=== PATIENT | female | born 1945 | race Caucasian/White ===

== ENCOUNTER → 2017-09-30 | Outpatient (CLI) | payer MEDICARE, OTHER ==
--- NOTE | 2017-09-30 15:04 | US ---
EXAMINATION TYPE: US thyroid st tissue head/neck DATE OF EXAM: 09/30/2017 COMPARISON: NONE CLINICAL HISTORY: 72-year-old female R22.1 Localized swelling, mass and lump, neck. TECHNIQUE: Multiple sonographic images of the left paramedian posterior neck at the level of C7 at th e patient's palpable site. FINDINGS: There is an ovoid, circumscribed, isoechoic mass situated within the deep subcutaneous fat layer orie nted horizontally and obliquely extending from the C7 spinous process midline extending out laterally . There is a mass effect onto the underlying muscular fascia. No associated vascularity. It measures 7.2 x 3.8 x 1.5cm. Additional views Mary Pulido. IMPRESSION: Well-defined, ovoid, isoechoic mass measuring 7.2 x 3.8 x 1.5 cm in the right paramedian posterior mi dline at the C7 level. This is located in the deep subcutaneous adipose layer contacting the underlyi ng superficial fascia and most likely represents a lipoma. Consider surgical excision especially if s ymptomatic or if there is growth.
== END | disposition home or self-care (01) ==
LOC: RADUSWWP 10:50
PROVIDERS: ATTEND Surgery Plastic and Reconstructive Surgery
DX: R22.1 Localized swelling, mass and lump, neck (principal); Z88.5 Allergy status to narcotic agent
CPT/HCPCS: 76536

== ENCOUNTER → 2017-10-15 | Outpatient (CLI) | payer MEDICARE, OTHER ==
--- NOTE | 2017-10-15 13:51 | CT ---
EXAMINATION TYPE: CT soft tissue neck wo/w con DATE OF EXAM: 10/15/2017 COMPARISON: Correlation thyroid ultrasound 09/30/2017 HISTORY: 72-year-old female Left sided posterior neck swelling and tenderness, cervical cyst, spine m ass. TECHNIQUE: Contiguous axial scanning of the soft tissues of the neck performed without and with IV Co ntrast, patient injected with 100 mL of Isovue 300. Coronal/sagittal reconstructions performed. CT DLP: 893.6 mGycm Automated exposure control for dose reduction was used. 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 Visualized intracranial structures, orbits and globes, paranasal sinuses, and mastoid air cells appea r clear. Nasopharynx is clear. Some calcifications in the left palatine tonsil suggests sequela of prior infection. Otherwise, oroph arynx appears clear. Epiglottis and prevertebral soft tissues appear within normal limits. Glottic and subglottic structures show no obvious mass. The tracheal column and visualized upper lung s are clear.. The thyroid gland, submandibular glands, and parotid glands are satisfactory. No cervical lymphadenopathy identified. Small 4 mm left occipital lymph node, axial image 75. There is fatty proliferation along the left paramedian posterior base of the neck measuring up to 5.2 cm craniocaudal by 2.8 cm AP by 6.0 cm wide. This shows some internal strandy densities but no abnor mal soft tissue nodularity. Bones: No osseous destructive process. IMPRESSION: 1. FATTY MASS LEFT PARAMEDIAN POSTERIOR BASE OF THE NECK MEASURES 6.0 X 5.2 X 2.8 CM. IT IS LOCATED I N THE SUBCUTANEOUS ADIPOSE LAYER ABUTTING THE UNDERLYING FASCIA. 2. 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 GIVEN SOME INTERNAL STRANDY DENSITIES, ATYPICAL LIPOMATOUS T UMOR AND LOW-GRADE LIPOSARCOMA ARE NOT ENTIRELY EXCLUDED FROM THE DIFFERENTIAL. CORRELATE FOR ANY SYM PTOMS OR RECENT GROWTH. 3. 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
== END | disposition home or self-care (01) ==
LOC: RADCTMAIN 12:20
PROVIDERS: ATTEND Surgery Plastic and Reconstructive Surgery
DX: Q27.8 Other specified congenital malformations of peripheral vascular system (principal); R22.1 Localized swelling, mass and lump, neck; Z88.5 Allergy status to narcotic agent
CPT/HCPCS: 82565; 84520; 70492; 36415; Q9967

== ENCOUNTER → 2018-08-08 | Outpatient (CLI) | payer MEDICARE, OTHER ==
--- NOTE | 2018-08-12 09:44 | MM ---
Reason for exam: screening (asymptomatic). Last mammogram was performed 1 year and 7 months ago. History: Patient is postmenopausal. Family history of breast cancer in mother at age 70. Physical Findings: A clinical breast exam by your physician is recommended on an annual basis and results should be correlated with mammographic findings. MG 3D Screening Mammo W/Cad Bilateral CC and MLO view(s) were taken. Prior study comparison: January 04, 2017, bilateral MG 3d screening mammo w/cad. March 02, 2015, bilateral MG screening mammo w CAD. There are scattered fibroglandular densities. No significant changes when compared with prior studies. ASSESSMENT: Benign, BI-RAD 2 RECOMMENDATION: Routine screening mammogram of both breasts in 1 year.
== END | disposition home or self-care (01) ==
LOC: RADMAMWWP 07:16
PROVIDERS: ATTEND Family Medicine
DX: Z12.31 Encounter for screening mammogram for malignant neoplasm of breast (principal)
CPT/HCPCS: 77063; 77067

== ENCOUNTER → 2018-11-14 | Outpatient (CLI) | payer MEDICARE, OTHER ==
--- NOTE | 2018-11-14 11:09 | US ---
EXAMINATION TYPE: US kidneys/renal and bladder DATE OF EXAM: 11/14/2018 COMPARISON: NONE CLINICAL HISTORY: R94.4 Decreased renal functions. Abnormal renal function test. EXAM MEASUREMENTS: Right Kidney: 9.6 x 4.4 x 3.8 cm Left Kidney: 10.8 x 5.6 x 4.9 cm Right Kidney: wnl Left Kidney: wnl Bladder: Anechoic not fully distended. Bilateral Jets seen: No There is no evidence for hydronephrosis at this point in time. No cortical renal thinning. Cortical m edullary differentiation is maintained. No nephrolithiasis is seen. No masses are identified. The u rinary bladder is anechoic. IMPRESSION: No hydronephrosis nor nephrolithiasis. No sonographic sequela of medical renal disease.
== END | disposition home or self-care (01) ==
LOC: RADUSWWP 09:52
PROVIDERS: ATTEND Family Medicine
DX: R94.4 Abnormal results of kidney function studies (principal)
CPT/HCPCS: 76770

== ENCOUNTER 2019-07-01 00:16 | Emergency (ER) | payer MEDICARE, OTHER ==
[2019-07-01 00:22] VITALS: RESP 18; TEMP 97.7
[2019-07-01] MEDS ORDERED: ONDANSETRON 4 MG/2 ML VIAL IVP STA (00:36)
[2019-07-01] MEDS ORDERED: KETOROLAC 30 MG/ML 1 ML VIAL IVP STA (00:36)
[2019-07-01] MEDS ORDERED: SODIUM CHLORIDE 0.9% 1,000 ML IV STA ×2 (00:36)
[2019-07-01] MEDS ORDERED: MORPHINE SULFATE 4 MG/ML SYRINGE IV STA (00:36)
--- NOTE | 2019-07-01 00:56 | ED ---
Back Pain HPI - General Chief Complaint: Back Pain/Injury Stated Complaint: Back Pain Time Seen by Provider: 07/01/19 00:23 Source: patient, RN notes reviewed, old records reviewed Limitations: no limitations - History of Present Illness Initial Comments: Patient is a 73-year-old female presents emergency department today for evaluation for onset of left-sided flank pain starting at 10 PM tonight. She reports the pain came on suddenly. She denies any fall or trauma. She states it feels deeper pain and not just her muscles or worse with position. Patient states she's had no recent fevers or chills. She reports normal urination and bowel habits. She denies any other significant complaints. - Related Data Allergies Allergy/AdvReac Type Severity Reaction Status Date / Time codeine Allergy Vomiting Verified 07/01/19 00:22 Review of Systems ROS Statement: Those systems with pertinent positive or pertinent negative responses have been documented in the HPI. ROS Other: All systems not noted in ROS Statement are negative. Past Medical History Past Medical History: No Reported History History of Any Multi-Drug Resistant Organisms: None Reported Past Surgical History: Cholecystectomy, Hysterectomy Past Psychological History: No Psychological Hx Reported Smoking Status: Former smoker Past Alcohol Use History: Rare Past Drug Use History: None Reported General Exam - General Exam Comments Initial Comments: 73 year old female, no distress. Limitations: no limitations General appearance: alert, in no apparent distress Head exam: Present: atraumatic, normocephalic, normal inspection Eye exam: Present: normal appearance, PERRL, EOMI. Absent: scleral icterus, conjunctival injection, periorbital swelling ENT exam: Present: normal exam, mucous membranes moist Neck exam: Present: normal inspection Respiratory exam: Present: normal lung sounds bilaterally. Absent: respiratory distress, wheezes, rales, rhonchi, stridor Cardiovascular Exam: Present: regular rate, normal rhythm, normal heart sounds. Absent: systolic murmur, diastolic murmur, rubs, gallop, clicks GI/Abdominal exam: Present: soft, normal bowel sounds. Absent: distended, tenderness, guarding, rebound, rigid Extremities exam: Present: normal inspection, full ROM, normal capillary refill. Absent: tenderness, pedal edema, joint swelling, calf tenderness Back exam: Present: normal inspection Neurological exam: Present: alert, oriented X3, CN II-XII intact Psychiatric exam: Present: normal affect, normal mood Skin exam: Present: warm, dry, intact, normal color. Absent: rash Course Vital Signs 07/01/19 07/01/19 00:18 01:47 Temperature 97.7 F Pulse Rate 85 71 Respiratory 18 18 Rate Blood Pressure 172/95 144/80 O2 Sat by Pulse 98 100 Oximetry - Reevaluation(s) Reevaluation #1: 07/01/19 02:40 Patient is reevaluated this time resting in bed. Stating that she has no further pain at this time. Patient states that after her initial dose of pain meds she did have just returned. Patient had her CT scan shows evidence of mild constipation, no hydronephrosis for patient's results. Attempting to give the Patient to ambulate for urine sample at this time. Medical Decision Making - Medical Decision Making Pleasant 73-year-old female presenting to emergency department today with a sudden onset of left-sided flank pain starting this evening at 10 PM. Patient reports the pain seems to radiate more towards the middle of her back and her left side of her abdomen. Patient is given IV fluids labwork obtained. CBC and CMP are unremarkable. She was unable to obtain urine sample. Patient initially complained of pain moving towards her middle back CT and pelvis completed to rule out any aortic abnormalities. CT abdomen and pelvis shows evidence of constipation, no hydronephrosis. She was able to provide urine sample does show some evidence of hematuria. Discussed that she likely did pass a kidney stone. After evaluation she denies any further pain. Patient states she is feeling better at this time. Discussed that Patient needs to encourage fluid intake and take Motrin Tylenol for pain. - Lab Data Result diagrams: 07/01/19 00:55 07/01/19 00:53 Lab Results 07/01/19 07/01/19 07/01/19 Range/Units 00:53 00:55 02:40 WBC 7.0 (3.8-10.6) k/uL RBC 4.84 (3.80-5.40) m/uL Hgb 13.9 (11.4-16.0) gm/dL Hct 42.1 (34.0-46.0) % MCV 87.0 (80.0-100.0) fL MCH 28.7 (25.0-35.0) pg MCHC 32.9 (31.0-37.0) g/dL RDW 12.9 (11.5-15.5) % Plt Count 322 (150-450) k/uL Neutrophils % 67 % Lymphocytes % 20 % Monocytes % 7 % Eosinophils % 3 % Basophils % 1 % Neutrophils # 4.7 (1.3-7.7) k/uL Lymphocytes # 1.4 (1.0-4.8) k/uL Monocytes # 0.5 (0-1.0) k/uL Eosinophils # 0.2 (0-0.7) k/uL Basophils # 0.0 (0-0.2) k/uL Sodium 136 L (137-145) mmol/L Potassium 4.4 (3.5-5.1) mmol/L Chloride 103 (98-107) mmol/L Carbon Dioxide 27 (22-30) mmol/L Anion Gap 6 mmol/L BUN 22 H (7-17) mg/dL Creatinine 0.97 (0.52-1.04) mg/dL Est GFR (CKD-EPI)AfAm 68 (>60 ml/min/1.73 sqM) Est GFR (CKD-EPI)NonAf 59 (>60 ml/min/1.73 sqM) Glucose 104 H (74-99) mg/dL Calcium 9.2 (8.4-10.2) mg/dL Total Bilirubin 0.6 (0.2-1.3) mg/dL AST 33 (14-36) U/L ALT 26 (4-34) U/L Alkaline Phosphatase 104 (38-126) U/L Total Protein 7.7 (6.3-8.2) g/dL Albumin 4.6 (3.5-5.0) g/dL Amylase 98 (30-110) U/L Lipase 172 (23-300) U/L Urine Color Light Yellow Urine Appearance Clear (Clear) Urine pH 6.5 (5.0-8.0) Ur Specific Eleva 1.012 (1.001-1.035) Urine Protein Negative (Negative) Urine Glucose (UA) Negative (Negative) Urine Ketones Negative (Negative) Urine Blood Moderate H (Negative) Urine Nitrite Negative (Negative) Urine Bilirubin Negative (Negative) Urine Urobilinogen <2.0 (<2.0) mg/dL Ur Leukocyte Esterase Trace H (Negative) Urine RBC 24 H (0-5) /hpf Urine WBC 3 (0-5) /hpf Ur Squamous Epith Cells <1 (0-4) /hpf - Radiology Data Radiology results: report reviewed CT abdomen and pelvis is evidence of constipation. There is retained fecal matter extending into the terminal ileum. No free fluid in the pelvis. No evidence of pelvic mass. Appendix is not definitely seen. On no hydronephrosis ureters are not dilated. No ascites or free air. Vertebral lower spine are normal alignment. Disc spaces are normal. No compression fracture. Disposition Clinical Impression: Flank pain, Hematuria, Constipation Disposition: HOME SELF-CARE Condition: Good Instructions (If sedation given, give patient instructions): Kidney Stones (ED), Flank Pain (ED) Additional Instructions: Patient advised to follow-up with primary care doctor. Return to emergency department if any alarming signs or symptoms occur. Take Motrin or Tylenol for further pain. Encourage fluid intake. Is patient prescribed a controlled substance at d/c from ED?: No Referrals: Parvez Prado MD [Primary Care Provider] - 1-2 days Time of Disposition: 03:04
[2019-07-01 01:10] LABS: Basophils % (A) 1 %; Eosinophils # (A) 0.2 k/uL (0-0.7); Eosinophils % (A) 3 %; HCT 42.1 % (34.0-46.0); HGB 13.9 gm/dL (11.4-16.0); Lymphocytes # (A) 1.4 k/uL (1.0-4.8); Lymphocytes % (A) 20 %; MCH 28.7 pg (25.0-35.0); MCHC 32.9 g/dL (31.0-37.0); Mean Platelet Volume 7.2; Monocytes # (A) 0.5 k/uL (0-1.0); Monocytes % (A) 7 %; Neutrophils # (A) 4.7 k/uL (1.3-7.7); Neutrophils % (A) 67 %; Platelet Count 322 k/uL (150-450); RBC 4.84 m/uL (3.80-5.40); RDW 12.9 % (11.5-15.5)
--- NOTE | 2019-07-01 01:21 | XR ---
EXAMINATION TYPE: XR KUB DATE OF EXAM: 07/01/2019 COMPARISON: NONE HISTORY: Left back pain TECHNIQUE: 2 views upright FINDINGS: There is no sign of intestinal obstruction or pneumoperitoneum. Fecal pattern is normal. Th ere are clips from cholecystectomy. Lung bases are clear. There are no pathologic calcifications over the kidneys. There is no evidence of a mass. IMPRESSION: Nonacute abdomen.
[2019-07-01 01:26] LABS: Albumin 4.6 g/dL (3.5-5.0); Calcium 9.2 mg/dL (8.4-10.2); Potassium 4.4 mmol/L (3.5-5.1); Total Bilirubin 0.6 mg/dL (0.2-1.3); Total Protein 7.7 g/dL (6.3-8.2)
[2019-07-01] MEDS ORDERED: SODIUM CHLORIDE 0.9% 1,000 ML IV ONE (01:51)
--- NOTE | 2019-07-01 02:28 | CT ---
EXAMINATION TYPE: CT abdomen pelvis w con DATE OF EXAM: 07/01/2019 COMPARISON: None HISTORY: Mid to lower back pain CT DLP: 1021.10 mGycm Automated exposure control for dose reduction was used. CONTRAST: Performed with IV Contrast, patient injected with 80 mL of Isovue 300. Lung bases are clear of infiltrate. There is mild subsegmental atelectasis at the lung bases. Heart a ppears normal. There is no pericardial effusion. There is no pleural effusion. There is small hiatal hernia. There are clips from cholecystectomy. Liver appears normal. Bile ducts are not dilated. Spleen is int act. Stomach is intact. There is no pancreatic mass. There is no adrenal mass. Kidneys show satisfactory contrast opacification. There is no hydronephrosi s. Ureters are not dilated. There is no retroperitoneal adenopathy. Bladder distends smoothly. There is no inguinal hernia. There is hysterectomy. There is no free fluid in the pelvis. There is no evidence of pelvic mass. Appendix is not definitely seen. There is no sig n of thickened appendix. Terminal ileum is top normal in size and measures 2.5 cm. There is no wall t hickening. There is some retained fecal material in the large bowel. There is no mesenteric edema. There is no ascites or free air. Lumbar vertebra have normal alignment. Disc spaces are fairly normal. There is no compression fractur e. The bony pelvis appears intact. IMPRESSION: There is evidence of constipation. There is evidence of retained fecal material extending into the te rminal ileum.
[2019-07-01 02:55] LABS: Appearance,Urine Clear (Clear); Bilirubin,Urine Negative (Negative); Blood,Urine Moderate (Negative); Color,Urine Light Yellow; Glucose,Urine (UA) Negative (Negative); Ketones,Urine Negative (Negative); Leukocyte Esterase,Urine Trace (Negative); Nitrite,Urine Negative (Negative); PH, Urine 6.5 (5.0-8.0); Protein,Urine Negative (Negative); RBC,Urine 24 /hpf (0-5); Specific Gravity,Urine 1.012 (1.001-1.035); Squamous Epithelial Cell,Urine <1 /hpf (0-4); Urobilinogen,Urine <2.0 mg/dL (<2.0); WBC,Urine 3 /hpf (0-5)
[2019-07-01 03:21] VITALS: BP 126/76; PULSE 69
== END 2019-07-01 03:21 | disposition home or self-care (01) ==
LOC: EC 00:16
DX: K59.00 Constipation, unspecified (principal); R31.9 Hematuria, unspecified; Z88.5 Allergy status to narcotic agent; Z87.891 Personal history of nicotine dependence
CPT/HCPCS: 36415; 80053; 82150; 83690; 85025; 81001; 74018; 74177; 99284; 96374; 96375 ×2; 96361 ×2; J2270; J2405; J1885; Q9967

== ENCOUNTER → 2019-10-28 | Outpatient (CLI) | payer MEDICARE, OTHER ==
--- NOTE | 2019-10-30 09:20 | MM ---
Reason for exam: screening (asymptomatic). Last mammogram was performed 1 year and 3 months ago. History: Patient is postmenopausal. Family history of breast cancer in mother at age 70. Physical Findings: A clinical breast exam by your physician is recommended on an annual basis and results should be correlated with mammographic findings. MG 3D Screening Mammo W/Cad Bilateral CC and MLO view(s) were taken. Prior study comparison: August 08, 2018, bilateral MG 3d screening mammo w/cad. January 04, 2017, bilateral MG 3d screening mammo w/cad. There are scattered fibroglandular densities. No significant changes when compared with prior studies. ASSESSMENT: Negative, BI-RAD 1 RECOMMENDATION: Routine screening mammogram of both breasts in 1 year.
== END | disposition home or self-care (01) ==
LOC: RADMAMWWP 16:41
PROVIDERS: ATTEND Family Medicine
DX: Z12.31 Encounter for screening mammogram for malignant neoplasm of breast (principal)
CPT/HCPCS: 77063; 77067

== ENCOUNTER → 2021-01-19 | Outpatient (CLI) | payer MEDICARE, OTHER ==
--- NOTE | 2021-01-23 10:06 | MM ---
Reason for exam: screening (asymptomatic). Last mammogram was performed 1 year and 3 months ago. History: Patient is postmenopausal. Family history of breast cancer in mother at age 70. Physical Findings: A clinical breast exam by your physician is recommended on an annual basis and results should be correlated with mammographic findings. MG 3D Screening Mammo W/Cad Bilateral CC and MLO view(s) were taken. Prior study comparison: October 28, 2019, bilateral MG 3d screening mammo w/cad. August 08, 2018, bilateral MG 3d screening mammo w/cad. There are scattered fibroglandular densities. No significant changes when compared with prior studies. ASSESSMENT: Negative, BI-RAD 1 RECOMMENDATION: Routine screening mammogram of both breasts in 1 year.
== END | disposition home or self-care (01) ==
LOC: RADMAMWWP 11:47
PROVIDERS: ATTEND Family Medicine
DX: Z12.31 Encounter for screening mammogram for malignant neoplasm of breast (principal); Z80.3 Family history of malignant neoplasm of breast; Z78.0 Asymptomatic menopausal state
CPT/HCPCS: 77063; 77067

== ENCOUNTER → 2021-08-02 | Outpatient (CLI) | payer MEDICARE, OTHER ==
--- NOTE | 2021-08-03 10:07 | US ---
EXAMINATION TYPE: US kidneys/renal and bladder DATE OF EXAM: 08/02/2021 COMPARISON: CT 2019, US 2018 CLINICAL HISTORY: N18.20 CHRONIC KIDNEY DISEASE, STAGE 2. EXAM MEASUREMENTS: Right Kidney: 8.5 x 4.5 x 4.3 cm Left Kidney: 10.7 x 5.5 x 5.0 cm Right Kidney: measures small in size, no hydronephrosis or masses seen Left Kidney: no hydronephrosis or masses seen Bladder: wnl Bilateral Jets seen: yes IMPRESSION: 1. No acute ultrasound abnormality bilateral kidneys
== END | disposition home or self-care (01) ==
LOC: RADUSWWP 15:46
PROVIDERS: ATTEND Nurse Practitioner Family
DX: N18.2 Chronic kidney disease, stage 2 (mild) (principal)
CPT/HCPCS: 76770

== ENCOUNTER → 2022-07-25 | Outpatient (CLI) | payer MEDICARE, OTHER ==
--- NOTE | 2022-07-25 10:26 | MM ---
Reason for Exam: Screening (asymptomatic). Last mammogram was performed 1 year(s) and 6 month(s) ago. Patient History: Menarche at age 14. First Full-Term at age 22. Left ovary removed at age 53. Right ovary removed at age 53. Hysterectomy at age 53. Postmenopausal. Mother had breast cancer, age 70. Risk Values: Ginny 5 year model risk: 3.4%. NCI Lifetime model risk: 7.2%. Prior Study Comparison: 01/04/2017 Bilateral Screening Mammogram, [facility]. 08/08/2018 Bilateral Screening Mammogram, [facility]. 10/28/2019 Bilateral Screening Mammogram, [facility]. 01/19/2021 Bilateral Screening Mammogram, [facility]. Tissue Density: The breast tissue is almost entirely fat. Findings: Analyzed By CAD. There is no suspicious group of microcalcifications or new suspicious mass in either breast. Overall Assessment: Negative, BI-RAD 1 Management: Screening Mammogram of both breasts in [address] [facility] will attempt to contact patient to return for supplemental views and ultrasound if indicated. Patient should continue monthly self-breast exams. A clinical breast exam by your physician is recommended on an annual basis. This exam should not preclude additional follow-up of suspicious palpable abnormalities. Note on Ginny scores and lifetime risk: 1. A Ginny score greater than 3% is considered moderate risk. If this is the case, consider specialist referral to assess eligibility for a risk reducing agent. 2. If overall lifetime risk for the development of breast cancer is 20% or higher, the patient may qualify for future screening with alternating mammogram and breast MRI. Electronically signed and approved by: Roman Mcmahan DO
== END | disposition home or self-care (01) ==
LOC: RADMAMWWP 09:25
PROVIDERS: ATTEND Family Medicine
DX: Z12.31 Encounter for screening mammogram for malignant neoplasm of breast (principal); Z78.0 Asymptomatic menopausal state; Z80.3 Family history of malignant neoplasm of breast
CPT/HCPCS: 77063; 77067

== ENCOUNTER → 2023-09-04 | Outpatient (CLI) | payer MEDICARE, OTHER ==
--- NOTE | 2023-09-05 08:32 | MM ---
Reason for Exam: Screening (asymptomatic). Last mammogram was performed 1 year(s) and 1 month(s) ago. Patient History: Menarche at age 14. First Full-Term at age 22. Left ovary removed at age 53. Right ovary removed at age 53. Hysterectomy at age 53. Postmenopausal. Mother had breast cancer, age 70. Risk Values: Ginny 5 year model risk: 3.4%. NCI Lifetime model risk: 6.8%. Prior Study Comparison: 01/04/2017 Bilateral Screening Mammogram, [facility]. 08/08/2018 Bilateral Screening Mammogram, [facility]. 10/28/2019 Bilateral Screening Mammogram, [facility]. 01/19/2021 Bilateral Screening Mammogram, [facility]. 07/25/2022 Bilateral MG 3D screening mammo w/cad, [facility]. Tissue Density: There are scattered areas of fibroglandular density. Findings: Analyzed By CAD. There is no suspicious group of microcalcifications or new suspicious mass in either breast. Overall Assessment: Negative, BI-RAD 1 Management: Screening Mammogram of both breasts in 1 year. . Patient should continue monthly self-breast exams. A clinical breast exam by your physician is recommended on an annual basis. This exam should not preclude additional follow-up of suspicious palpable abnormalities. Note on Ginny scores and lifetime risk: 1. A Ginny score greater than 3% is considered moderate risk. If this is the case, consider specialist referral to assess eligibility for a risk reducing agent. 2. If overall lifetime risk for the development of breast cancer is 20% or higher, the patient may qualify for future screening with alternating mammogram and breast MRI. Electronically signed and approved by: Juan Haro M.D. Radiologis
== END | disposition home or self-care (01) ==
LOC: RADMAMWWP 09:38
PROVIDERS: ATTEND Family Medicine
DX: Z12.31 Encounter for screening mammogram for malignant neoplasm of breast (principal); Z78.0 Asymptomatic menopausal state; Z80.3 Family history of malignant neoplasm of breast
CPT/HCPCS: 77063; 77067

== ENCOUNTER 2023-10-16 07:25 | Day surgery (SDC) | payer MEDICARE, OTHER ==
[2023-10-11 15:52] VITALS: BMI 28.3
[~2023-10-16 07:25] MED LIST: LACTATED RINGERS 1,000 ML BAG ONE; PROPOFOL 10 MG/ML 20 ML VIAL IV ONE
--- NOTE | 2023-11-08 15:13 | P.PCN ---
Date of Procedure: 10/16/23 Procedure(s) Performed: This is an addendum to the procedure was performed on 10/16/2023. Procedure performed EGD with biopsy Colonoscopy Procedure: Upper endoscopy was performed. The scope was advanced all the way into the duodenum. In the antrum bile gastritis was noted and biopsies were done from this area. At this time colonoscopy was performed scope was advanced into the cecum. The colonoscopy appeared normal.
== END 2023-10-16 08:21 | disposition home or self-care (01) ==
LOC: ORWHC2ENDO 07:25
PROVIDERS: ATTEND Internal Medicine Gastroenterology
DX: Z12.11 Encounter for screening for malignant neoplasm of colon (principal); K21.9 Gastro-esophageal reflux disease without esophagitis; K29.50 Unspecified chronic gastritis without bleeding; I48.91 Unspecified atrial fibrillation; E78.5 Hyperlipidemia, unspecified; Z79.899 Other long term (current) drug therapy; Z90.49 Acquired absence of other specified parts of digestive tract; Z98.890 Other specified postprocedural states
CPT/HCPCS: 43239; G0121; 45378; 88305

== ENCOUNTER → 2024-01-15 | Outpatient (CLI) | payer MEDICARE, OTHER ==
[2024-01-15 18:40] LABS: Basophils # (A) 0.05 X 10*3/uL (0.00-0.10); Basophils % (A) 0.7 %; Eosinophils # (A) 0.14 X 10*3/uL (0.04-0.35); HCT 44.6 % (37.2-46.3); HGB 14.6 g/dL (12.0-15.0); Lymphocytes # (A) 1.35 X 10*3/uL (0.90-5.00); Lymphocytes % (A) 19.7 %; MCHC 32.7 g/dL (32.0-37.0); MCV 88.7 FL (80.0-97.0); Monocytes % (A) 7.3 %; NRBC Per 100 WBC 0 X 10*3/uL (0.00-0.01); Neutrophils # (A) 4.78 X 10*3/uL (1.80-7.70); Platelet Count 342 X 10*3/uL (140-440); RBC 5.03 X 10*6/uL (4.10-5.20); RDW 12.6 % (11.5-14.5); WBC 6.84 X 10*3/uL (4.50-10.00)
[2024-01-15 18:59] LABS: % Iron Saturation 17.09 (12.00-45.00); ALT 33 U/L (8-44); AST 38 U/L (13-35); Albumin 4.7 g/dL (3.8-4.9); Albumin/Globulin Ratio 1.57 Ratio (1.60-3.17); Alkaline Phosphatase 100 U/L (41-126); BUN/Creat Ratio 22.62 Ratio (12.00-20.00); Blood Urea Nitrogen 18.1 mg/dL (9.0-27.0); Calcium 9.9 mg/dL (8.7-10.3); Carbon Dioxide 24.6 mmol/L (21.6-31.8); Chloride 103 mmol/L (96-109); Glucose 96 mg/dL (70-110); Iron 61 UG/DL (50-170); Magnesium 2.2 mg/dL (1.5-2.4); Phosphorus 4.1 mg/dL (2.4-5.1); Potassium 4.6 mmol/L (3.5-5.5); Sodium 140 mmol/L (135-145); Total Bilirubin 0.7 mg/dL (0.3-1.2); Total Iron Binding Capacity 357 UG/DL (228-460); Total Protein 7.7 g/dL (6.2-8.2); Uric Acid 5.9 mg/dL (2.9-7.7)
[2024-01-15 20:10] LABS: Appearance,Urine Clear (Clear); Bilirubin,Urine Negative (Negative); Blood,Urine Negative (Negative); Color,Urine Yellow (Yellow); Ketones,Urine Negative (Negative); Nitrite,Urine Negative (Negative); Specific Gravity,Urine 1.009 (1.001-1.030); Urobilinogen,Urine 0.2 E.U./DL
[2024-01-15 20:26] LABS: Bacteria,Urine None Seen (None Seen)
[2024-01-15 21:51] LABS: Microalbumin Creatinine Ratio <21 mg/g Cr (0-30); Urine Creatinine 56.3 mg/dL (28.0-217.0)
== END | disposition home or self-care (01) ==
LOC: LABWHC1 14:03
PROVIDERS: ATTEND Internal Medicine
DX: N18.2 Chronic kidney disease, stage 2 (mild) (principal)
CPT/HCPCS: 36415; 80053; 81001; 82043; 82306; 82570; 82728; 83036; 83540; 83550; 83735; 83970; 84100; 84550; 85025

== ENCOUNTER → 2024-10-08 | Outpatient (CLI) | payer MEDICARE, OTHER ==
--- NOTE | 2024-10-09 16:40 | MM ---
Reason for Exam: Screening (asymptomatic). Last mammogram was performed 1 year(s) and 1 month(s) ago. Patient History: Menarche at age 14. First Full-Term at age 22. Left ovary removed at age 53. Right ovary removed at age 53. Hysterectomy at age 53. Postmenopausal. Mother had breast cancer, age 70. Risk Values: Ginny 5 year model risk: 3.3%. NCI Lifetime model risk: 6.3%. Prior Study Comparison: 01/19/2021 Bilateral Screening Mammogram, [facility]. 07/25/2022 Bilateral MG 3D screening mammo w/cad, [facility]. 09/04/2023 Bilateral MG 3D screening mammo w/cad, [facility]. Tissue Density: The breasts are almost entirely fatty. Findings: Analyzed By CAD. There is no suspicious group of microcalcifications or new suspicious mass in either breast. Overall Assessment: Negative, BI-RAD 1 Management: Screening Mammogram of both breasts in 1 year. See note below in regards to the patient's increased 5 year Ginny score. Patient should continue monthly self-breast exams. A clinical breast exam by your physician is recommended on an annual basis. This exam should not preclude additional follow-up of suspicious palpable abnormalities. Note on Ginny scores and lifetime risk: 1. A Ginny score greater than 3% is considered moderate risk. If this is the case, consider specialist referral to assess eligibility for a risk reducing agent. 2. If overall lifetime risk for the development of breast cancer is 20% or higher, the patient may qualify for future screening with alternating mammogram and breast MRI. [facility], , 10/09/2024 4:37 PM. Electronically signed and approved by: Alayna Pepper M.D. Radiologist
== END | disposition home or self-care (01) ==
LOC: RADMAMWWP 14:25
PROVIDERS: ATTEND Family Medicine
DX: Z12.31 Encounter for screening mammogram for malignant neoplasm of breast (principal); R92.313 Mammographic fatty tissue density, bilateral breasts; Z78.0 Asymptomatic menopausal state; Z80.3 Family history of malignant neoplasm of breast
CPT/HCPCS: 77063; 77067